=== PATIENT | male | born 1965 | race Caucasian/White ===

== ENCOUNTER 2017-10-07 22:28 | Emergency (ER) | payer MEDICAID ==
[~2017-10-07] VITALS: Ht 177.8 cm; Wt 73.0 kg
[~2017-10-07 22:28] MED LIST: PANT40TA4 PO
[2017-10-07 23:26] LABS: BASOPHILS # (AUTO) 0.1 X10'3 (0-0.2); EOSINOPHILS # (AUTO) 0.4 X10'3 (0-0.9); EOSINOPHILS % (AUTO) 7.5 % (0-6); HEMATOCRIT 41.7 % (42.0-52.0); HEMOGLOBIN 14.4 g/dl (14.0-17.9); LYMPHOCYTES # (AUTO) 2.4 X10'3 (1.1-4.8); LYMPHOCYTES % (AUTO) 40.9 % (21-51); MEAN CORPUSCULAR HEMOGLOBIN 34.7 PG (27.0-31.0); MEAN CORPUSCULAR HGB CONC 34.5 % (33.0-36.5); MEAN CORPUSCULAR VOLUME 100.6 FL (78-98); MEAN PLATELET VOLUME 7.1 FL (7.4-10.4); MONOCYTES # (AUTO) 0.4 X10'3 (0-0.9); MONOCYTES % (AUTO) 6.5 % (2-12); NEUTROPHILS # (AUTO) 2.6 X10'3 (1.8-7.7); NEUTROPHILS % (AUTO) 44.1 % (42-75); PLATELET COUNT 167 X10'3 (140-440); RED BLOOD COUNT 4.15 X10'6 (4.70-6.10); RED CELL DISTRIBUTION WIDTH 14.8 % (11.5-14.5); WHITE BLOOD COUNT 5.9 X10'3 (4.5-11.0)
[2017-10-07 23:35] LABS: INR 1.1 INR; PARTIAL THROMBOPLASTIN TIME 32 SECONDS (22-32); PROTHROMBIN TIME 11.5 SECONDS (9.0-12.0)
[2017-10-07 23:50] LABS: ALANINE AMINOTRANSFERASE 31 U/L (12-78); ALBUMIN 3.5 G/DL (3.4-5.0); ALBUMIN/GLOBULIN RATIO 0.8 (1.1-1.5); ALKALINE PHOSPHATASE 122 IU/L (46-116); ANION GAP 9 (8-16); ASPARTATE AMINO TRANSFERASE 35 U/L (10-37); BILIRUBIN,TOTAL 0.4 MG/DL (0.1-1.0); BLOOD UREA NITROGEN 9 MG/DL (7-18); BUN/CREATININE RATIO 17.3 (5.4-32.0); CALCIUM 8.1 MG/DL (8.5-10.1); CHLORIDE 108 MMOL/L (99-107); CREATININE 0.52 MG/DL (0.60-1.10); GLUCOSE 101 MG/DL (70-104); MAGNESIUM 1.7 MG/DL (1.5-2.4); POTASSIUM 4.3 MMOL/L (3.5-5.1); SODIUM 146 MMOL/L (135-145); TOTAL PROTEIN 7.9 G/DL (6.4-8.2); eGFR > 90 ML/MIN
[2017-10-07 23:51] LABS: ACETAMINOPHEN < 2.0 UG/ML (10-30)
[2017-10-08 04:27] VITALS: BP 112/90
== END 2017-10-08 07:27 | disposition home or self-care (01) ==
LOC: ER 22:28
DX: F10.129 Alcohol abuse with intoxication, unspecified (principal); Y90.9 Presence of alcohol in blood, level not specified; Z59.0 Homelessness
CPT/HCPCS: 36415; 70450; 80053; 80320; 80329; 83735; 85025; 85610; 85730; 99285

== ENCOUNTER 2018-01-10 06:35 | Inpatient (IN) | payer MEDICAID ==
[~2018-01-10] VITALS: Ht 180.3 cm; Wt 63.0 kg
[~2018-01-10 06:35] MED LIST changes: +ESOM40CA30 PO; +LACT10SO7 PO; +MULT-1179 PO; +NO HOME MEDS; -PANT40TA4 PO
[2018-01-10] MEDS ORDERED: normal saline 1000ML IV soln IVB ONE (07:20)
[2018-01-10 07:35] LABS: BASOPHILS # (AUTO) 0.1 X10'3 (0-0.2); BASOPHILS % (AUTO) 1.2 % (0-1); EOSINOPHILS # (AUTO) 0.4 X10'3 (0-0.9); EOSINOPHILS % (AUTO) 7.3 % (0-6); HEMATOCRIT 29.7 % (42.0-52.0); HEMOGLOBIN 9.9 g/dl (14.0-17.9); LYMPHOCYTES # (AUTO) 0.9 X10'3 (1.1-4.8); LYMPHOCYTES % (AUTO) 17.2 % (21-51); MEAN CORPUSCULAR HEMOGLOBIN 33.1 PG (27.0-31.0); MEAN CORPUSCULAR HGB CONC 33.2 % (33.0-36.5); MEAN CORPUSCULAR VOLUME 99.7 FL (78-98); MEAN PLATELET VOLUME 7.4 FL (7.4-10.4); MONOCYTES # (AUTO) 0.3 X10'3 (0-0.9); MONOCYTES % (AUTO) 4.9 % (2-12); NEUTROPHILS # (AUTO) 3.8 X10'3 (1.8-7.7); NEUTROPHILS % (AUTO) 69.4 % (42-75); PLATELET COUNT 255 X10'3 (140-440); RED BLOOD COUNT 2.98 X10'6 (4.70-6.10); RED CELL DISTRIBUTION WIDTH 22.4 % (11.5-14.5); WHITE BLOOD COUNT 5.5 X10'3 (4.5-11.0)
[2018-01-10 07:41] LABS: CLARITY,URINE CLEAR (Clear); COLOR,URINE YELLOW (Yellow); GLUCOSE, URINE NEGATIVE (Neg); KETONES,URINE NEGATIVE (Neg); LEUKOCYTE ESTERASE ,URINE NEGATIVE (Neg); NITRITES, URINE NEGATIVE (Neg); OCCULT BLOOD,URINE NEGATIVE (Neg); PROTEIN,URINE NEGATIVE (Neg); UROBILINOGEN,URINE 0.2 E.U/dL (0.2-1.0)
[2018-01-10 07:45] LABS: UA COLLECTION TYPE CLN CATCH MIDSTREAM
[2018-01-10 07:50] LABS: ALANINE AMINOTRANSFERASE 47 U/L (12-78); ALBUMIN 3.2 G/DL (3.4-5.0); ALBUMIN/GLOBULIN RATIO 0.8 (1.1-1.5); ALKALINE PHOSPHATASE 172 IU/L (46-116); ANION GAP 6 (8-16); ASPARTATE AMINO TRANSFERASE 43 U/L (10-37); BILIRUBIN,TOTAL 0.3 MG/DL (0.1-1.0); BLOOD UREA NITROGEN 17 MG/DL (7-18); BUN/CREATININE RATIO 25.4 (5.4-32.0); CALCIUM 8.7 MG/DL (8.5-10.1); CHLORIDE 105 MMOL/L (99-107); CREATININE 0.67 MG/DL (0.60-1.10); GLUCOSE 97 MG/DL (70-104); MAGNESIUM 1.4 MG/DL (1.5-2.4); POTASSIUM 4.2 MMOL/L (3.5-5.1); SODIUM 138 MMOL/L (135-145); TOTAL CARBON DIOXIDE 26.8 MMOL/L (24-32); TOTAL PROTEIN 7.1 G/DL (6.4-8.2); eGFR > 90 ML/MIN
[2018-01-10 08:23] LABS: % IRON SATURATION 11 % (11-46); IRON 33 UG/DL (53-167); TOTAL IRON BINDING CAPACITY 313 UG/DL (259-388)
[2018-01-10 08:31] LABS: OCCULT BLOOD STOOL POSITIVE (Neg)
[2018-01-10] MEDS ORDERED: phenobarbital inj 260 MG in normal saline 100ml IV soln 99 ML IV STA (09:42)
[2018-01-10] MEDS ORDERED: thiamine 100mg tablet PO ONE (09:45)
[2018-01-10] MEDS ORDERED: magnesium oxide 400mg tablet PO ONE (09:45)
[2018-01-10] MEDS ORDERED: pantoprazole 40MG/NS 100ML BAG 100 ML IV STA (09:56)
[2018-01-10] MEDS ORDERED: pantoprazole 40 MG vial IV ONE (10:00)
[2018-01-10] MEDS ORDERED: HYDROcodone/acetaminophen 5mg/325mg tablet PO PRN (10:05)
[2018-01-10] MEDS ORDERED: morphine 4 MG/ML inj SYRINge IV PRN (10:05)
[2018-01-10] MEDS ORDERED: acetaminophen 325mg tablet PO PRN (10:05)
[2018-01-10] MEDS ORDERED: ondansetron/PF 4mg/2ml inj IV PRN (10:05)
[2018-01-10] MEDS ORDERED: magnesium hydroxide 30ml (MOM) UD suspension PO PRN (10:05)
[2018-01-10] MEDS ORDERED: mag hydrox/Alum hydrox/simeth 30ml oral suspension PO PRN (10:05)
[2018-01-10] MEDS: normal saline 1000ml 1,000 ML IV SCH ×3 (10:43→21:20)
[2018-01-10] MEDS ORDERED: chlordiazePOXIDE 25mg capsule PO ONE (10:50)
[2018-01-10] MEDS: pantoprazole 40MG/NS 100ML BAG 100 ML IV SCH ×3 (11:47→21:22)
[2018-01-10 11:56] VITALS: BP 104/54
[2018-01-10] MEDS ORDERED: [UNRECOGNIZED DRUG - OTHER] (13:44)
[2018-01-10] MEDS ORDERED: nicotine 21mg patch - 24 hr TD ONE (13:55)
[2018-01-10 15:15] LABS: HEMATOCRIT 27.4 % (42.0-52.0); HEMOGLOBIN 9.1 g/dl (14.0-17.9); MEAN CORPUSCULAR HEMOGLOBIN 32.9 PG (27.0-31.0); MEAN CORPUSCULAR HGB CONC 33.1 % (33.0-36.5); MEAN CORPUSCULAR VOLUME 99.3 FL (78-98); MEAN PLATELET VOLUME 7.3 FL (7.4-10.4); PLATELET COUNT 231 X10'3 (140-440); RED BLOOD COUNT 2.76 X10'6 (4.70-6.10); RED CELL DISTRIBUTION WIDTH 22.1 % (11.5-14.5); WHITE BLOOD COUNT 3.6 X10'3 (4.5-11.0)
[2018-01-10 20:00] VITALS: BP 102/54
[2018-01-10 23:52] LABS: HEMATOCRIT 26.5 % (42.0-52.0); HEMOGLOBIN 8.7 g/dl (14.0-17.9); MEAN CORPUSCULAR HEMOGLOBIN 32.9 PG (27.0-31.0); MEAN CORPUSCULAR HGB CONC 32.9 % (33.0-36.5); MEAN PLATELET VOLUME 7.8 FL (7.4-10.4); PLATELET COUNT 207 X10'3 (140-440); RED BLOOD COUNT 2.65 X10'6 (4.70-6.10); RED CELL DISTRIBUTION WIDTH 22.2 % (11.5-14.5); WHITE BLOOD COUNT 3.8 X10'3 (4.5-11.0)
[2018-01-11] VITALS (7 sets, daily range): BP systolic 95–120; BP diastolic 50–69
[2018-01-11] MEDS: pantoprazole 40MG/NS 100ML BAG 100 ML IV SCH ×6 (01:27→22:13)
[2018-01-11 05:17] LABS: BASOPHILS # (AUTO) 0.1 X10'3 (0-0.2); BASOPHILS % (AUTO) 2.3 % (0-1); EOSINOPHILS # (AUTO) 0.3 X10'3 (0-0.9); EOSINOPHILS % (AUTO) 9.2 % (0-6); HEMATOCRIT 25.9 % (42.0-52.0); HEMOGLOBIN 8.6 g/dl (14.0-17.9); LYMPHOCYTES # (AUTO) 0.7 X10'3 (1.1-4.8); LYMPHOCYTES % (AUTO) 21.4 % (21-51); MEAN CORPUSCULAR HEMOGLOBIN 33.2 PG (27.0-31.0); MEAN CORPUSCULAR HGB CONC 33.3 % (33.0-36.5); MEAN CORPUSCULAR VOLUME 99.9 FL (78-98); MEAN PLATELET VOLUME 7.6 FL (7.4-10.4); MONOCYTES # (AUTO) 0.3 X10'3 (0-0.9); MONOCYTES % (AUTO) 7.6 % (2-12); NEUTROPHILS % (AUTO) 59.5 % (42-75); PLATELET COUNT 216 X10'3 (140-440); RED BLOOD COUNT 2.59 X10'6 (4.70-6.10); RED CELL DISTRIBUTION WIDTH 22.5 % (11.5-14.5); WHITE BLOOD COUNT 3.4 X10'3 (4.5-11.0)
[2018-01-11 05:32] LABS: ALANINE AMINOTRANSFERASE 36 U/L (12-78); ALBUMIN 2.5 G/DL (3.4-5.0); ALBUMIN/GLOBULIN RATIO 0.8 (1.1-1.5); ALKALINE PHOSPHATASE 123 IU/L (46-116); ANION GAP 4 (8-16); ASPARTATE AMINO TRANSFERASE 32 U/L (10-37); BILIRUBIN,TOTAL 0.3 MG/DL (0.1-1.0); BLOOD UREA NITROGEN 8 MG/DL (7-18); BUN/CREATININE RATIO 14.3 (5.4-32.0); CHLORIDE 110 MMOL/L (99-107); CREATININE 0.56 MG/DL (0.60-1.10); GLUCOSE 85 MG/DL (70-104); POTASSIUM 3.9 MMOL/L (3.5-5.1); SODIUM 142 MMOL/L (135-145); TOTAL CARBON DIOXIDE 27.6 MMOL/L (24-32); TOTAL PROTEIN 5.8 G/DL (6.4-8.2); eGFR > 90 ML/MIN
[2018-01-11 07:33] LABS: HEMATOCRIT 26.7 % (42.0-52.0); HEMOGLOBIN 8.8 g/dl (14.0-17.9); MEAN CORPUSCULAR HEMOGLOBIN 33.2 PG (27.0-31.0); MEAN CORPUSCULAR HGB CONC 33.1 % (33.0-36.5); MEAN CORPUSCULAR VOLUME 100.1 FL (78-98); MEAN PLATELET VOLUME 7.5 FL (7.4-10.4); PLATELET COUNT 215 X10'3 (140-440); RED BLOOD COUNT 2.66 X10'6 (4.70-6.10); RED CELL DISTRIBUTION WIDTH 21.8 % (11.5-14.5); WHITE BLOOD COUNT 3.5 X10'3 (4.5-11.0)
[2018-01-11 07:49] LABS: PLATELET ESTIMATE NORMAL
[2018-01-11 07:50] LABS: ANISOCYTOSIS 3+; POLYCHROMASIA FEW; TARGET CELLS FEW
[2018-01-11] MEDS ORDERED: LISI40TA4 PO (08:16)
[2018-01-11] MEDS ORDERED: PANT40TA4 PO (08:16)
[2018-01-11] MEDS: normal saline 1000ml 1,000 ML IV SCH ×2 (08:39→19:27)
[2018-01-11] MEDS: nicotine 21mg patch - 24 hr TD SCH (08:40)
[2018-01-11] MEDS: traMADol 50MG tablet PO PRN ×4 (09:21→23:31)
[2018-01-11] MEDS ORDERED: nicotine 21mg patch - 24 hr TD ONE ×2 (14:40)
[2018-01-11 16:08] LABS: HEMATOCRIT 26.4 % (42.0-52.0); HEMOGLOBIN 8.7 g/dl (14.0-17.9); MEAN CORPUSCULAR HEMOGLOBIN 33.2 PG (27.0-31.0); MEAN CORPUSCULAR VOLUME 100.6 FL (78-98); MEAN PLATELET VOLUME 7.4 FL (7.4-10.4); PLATELET COUNT 222 X10'3 (140-440); RED BLOOD COUNT 2.62 X10'6 (4.70-6.10); RED CELL DISTRIBUTION WIDTH 22.4 % (11.5-14.5); WHITE BLOOD COUNT 3.5 X10'3 (4.5-11.0)
[2018-01-11 23:41] LABS: HEMATOCRIT 25.7 % (42.0-52.0); HEMOGLOBIN 8.4 g/dl (14.0-17.9); MEAN CORPUSCULAR HEMOGLOBIN 32.7 PG (27.0-31.0); MEAN CORPUSCULAR HGB CONC 32.7 % (33.0-36.5); MEAN PLATELET VOLUME 7.6 FL (7.4-10.4); PLATELET COUNT 203 X10'3 (140-440); RED BLOOD COUNT 2.57 X10'6 (4.70-6.10); RED CELL DISTRIBUTION WIDTH 22.1 % (11.5-14.5); WHITE BLOOD COUNT 3.9 X10'3 (4.5-11.0)
[2018-01-12] VITALS: BP 110/57
[2018-01-12] MEDS: pantoprazole 40MG/NS 100ML BAG 100 ML IV SCH ×2 (02:58→08:56)
[2018-01-12] MEDS: normal saline 1000ml 1,000 ML IV SCH (05:38)
[2018-01-12 06:08] LABS: BASOPHILS # (AUTO) 0.1 X10'3 (0-0.2); BASOPHILS % (AUTO) 1.8 % (0-1); EOSINOPHILS # (AUTO) 0.4 X10'3 (0-0.9); EOSINOPHILS % (AUTO) 9.5 % (0-6); HEMATOCRIT 24.3 % (42.0-52.0); LYMPHOCYTES # (AUTO) 0.8 X10'3 (1.1-4.8); LYMPHOCYTES % (AUTO) 20.5 % (21-51); MEAN CORPUSCULAR HEMOGLOBIN 32.9 PG (27.0-31.0); MEAN CORPUSCULAR HGB CONC 33.1 % (33.0-36.5); MEAN CORPUSCULAR VOLUME 99.6 FL (78-98); MEAN PLATELET VOLUME 7.9 FL (7.4-10.4); MONOCYTES # (AUTO) 0.3 X10'3 (0-0.9); MONOCYTES % (AUTO) 6.8 % (2-12); NEUTROPHILS # (AUTO) 2.3 X10'3 (1.8-7.7); NEUTROPHILS % (AUTO) 61.4 % (42-75); PLATELET COUNT 191 X10'3 (140-440); RED BLOOD COUNT 2.44 X10'6 (4.70-6.10); RED CELL DISTRIBUTION WIDTH 21.3 % (11.5-14.5); WHITE BLOOD COUNT 3.7 X10'3 (4.5-11.0)
[2018-01-12 06:19] LABS: ALANINE AMINOTRANSFERASE 39 U/L (12-78); ALBUMIN 2.3 G/DL (3.4-5.0); ALBUMIN/GLOBULIN RATIO 0.7 (1.1-1.5); ALKALINE PHOSPHATASE 118 IU/L (46-116); ANION GAP 6 (8-16); ASPARTATE AMINO TRANSFERASE 32 U/L (10-37); BILIRUBIN,TOTAL 0.2 MG/DL (0.1-1.0); BLOOD UREA NITROGEN 5 MG/DL (7-18); BUN/CREATININE RATIO 9.6 (5.4-32.0); CALCIUM 8.4 MG/DL (8.5-10.1); CHLORIDE 108 MMOL/L (99-107); CREATININE 0.52 MG/DL (0.60-1.10); GLUCOSE 82 MG/DL (70-104); POTASSIUM 3.6 MMOL/L (3.5-5.1); SODIUM 142 MMOL/L (135-145); TOTAL CARBON DIOXIDE 27.8 MMOL/L (24-32); TOTAL PROTEIN 5.5 G/DL (6.4-8.2); eGFR > 90 ML/MIN
[2018-01-12 07:04] VITALS: BP 107/61
[2018-01-12 08:26] LABS: HEMATOCRIT 25.2 % (42.0-52.0); HEMOGLOBIN 8.4 g/dl (14.0-17.9); MEAN CORPUSCULAR HGB CONC 33.1 % (33.0-36.5); MEAN CORPUSCULAR VOLUME 99.7 FL (78-98); MEAN PLATELET VOLUME 7.5 FL (7.4-10.4); PLATELET COUNT 200 X10'3 (140-440); RED BLOOD COUNT 2.53 X10'6 (4.70-6.10); RED CELL DISTRIBUTION WIDTH 21.7 % (11.5-14.5); WHITE BLOOD COUNT 4.1 X10'3 (4.5-11.0)
[2018-01-12] MEDS: nicotine 21mg patch - 24 hr TD SCH (08:49)
[2018-01-12] MEDS: traMADol 50MG tablet PO PRN (08:52)
[2018-01-12] MEDS ORDERED: TRAM50TA2 PO (09:12)
[2018-01-12] MEDS ORDERED: PANT40TA4 PO (09:12)
== END 2018-01-12 11:05 | disposition home or self-care (01) | DRG 254 ==
LOC: ER 06:35 → ED HOLD 10:04 → SUR 3N 11:21
PROVIDERS: ADMIT Internal Medicine; ATTEND Internal Medicine
DX: K92.1 Melena (principal); D62 Acute posthemorrhagic anemia; F17.210 Nicotine dependence, cigarettes, uncomplicated; M54.9 Dorsalgia, unspecified; F10.230 Alcohol dependence with withdrawal, uncomplicated; Z59.0 Homelessness; Z79.899 Other long term (current) drug therapy; Y92.89 Other specified places as the place of occurrence of the external cause; T39.315A Adverse effect of propionic acid derivatives, initial encounter
CPT/HCPCS: 36415; 71045; 80053; 81003; 82272; 82607; 82728; 82746; 83540; 83550; 83735; 84466; 85025; 85027; 86885; 86900; 86901; 87070; 93005; 96361; 96365; 99285; C9113; J2270; J2560; J7030

== ENCOUNTER 2018-02-03 20:28 | Emergency (ER) | payer MEDICAID ==
[~2018-02-03] VITALS: Ht 180.3 cm; Wt 65.0 kg
[~2018-02-03 20:28] MED LIST changes: -ESOM40CA30 PO; -LACT10SO7 PO; +LISI40TA4 PO; -MULT-1179 PO; -NO HOME MEDS; +PANT40TA4 PO; +TRAM50TA2 PO
[2018-02-03] MEDS ORDERED: ondansetron/PF 4mg/2ml inj IV ONE (20:45)
[2018-02-03] MEDS ORDERED: albuterol 2.5 MG/3 ML nebule NEB ONE (20:45)
[2018-02-03] MEDS ORDERED: morphine 4 MG/ML inj SYRINge IV ONE (20:45)
[2018-02-03] MEDS ORDERED: [UNRECOGNIZED DRUG - CODE] (20:48)
[2018-02-03] MEDS ORDERED: methylPREDNISolone sod succ 125mg/2ml vial IV ONE (20:50)
[2018-02-03 21:12] LABS: INR 1.1 INR; PARTIAL THROMBOPLASTIN TIME 31 SECONDS (22-32); PROTHROMBIN TIME 11.2 SECONDS (9.0-12.0)
[2018-02-03 21:16] LABS: ALANINE AMINOTRANSFERASE 25 U/L (12-78); ALBUMIN 3.2 G/DL (3.4-5.0); ALBUMIN/GLOBULIN RATIO 0.8 (1.1-1.5); ALKALINE PHOSPHATASE 169 IU/L (46-116); ANION GAP 7 (8-16); ASPARTATE AMINO TRANSFERASE 27 U/L (10-37); BILIRUBIN,TOTAL 0.2 MG/DL (0.1-1.0); BLOOD UREA NITROGEN 15 MG/DL (7-18); BUN/CREATININE RATIO 17.4 (5.4-32.0); CALCIUM 8.7 MG/DL (8.5-10.1); CHLORIDE 106 MMOL/L (99-107); CREATININE 0.86 MG/DL (0.60-1.10); GLUCOSE 93 MG/DL (70-104); SODIUM 140 MMOL/L (135-145); TOTAL PROTEIN 7.3 G/DL (6.4-8.2); eGFR > 90 ML/MIN
[2018-02-03 21:31] LABS: BASOPHILS # (AUTO) 0.1 X10'3 (0-0.2); BASOPHILS % (AUTO) 1.3 % (0-1); EOSINOPHILS # (AUTO) 0.2 X10'3 (0-0.9); EOSINOPHILS % (AUTO) 4.5 % (0-6); HEMATOCRIT 29.4 % (42.0-52.0); HEMOGLOBIN 9.6 g/dl (14.0-17.9); LYMPHOCYTES # (AUTO) 0.9 X10'3 (1.1-4.8); LYMPHOCYTES % (AUTO) 19.3 % (21-51); MEAN CORPUSCULAR HEMOGLOBIN 32.1 PG (27.0-31.0); MEAN CORPUSCULAR HGB CONC 32.8 % (33.0-36.5); MEAN CORPUSCULAR VOLUME 97.9 FL (78-98); MEAN PLATELET VOLUME 7.7 FL (7.4-10.4); MONOCYTES # (AUTO) 0.3 X10'3 (0-0.9); MONOCYTES % (AUTO) 7.3 % (2-12); NEUTROPHILS # (AUTO) 3.1 X10'3 (1.8-7.7); NEUTROPHILS % (AUTO) 67.6 % (42-75); PLATELET COUNT 177 X10'3 (140-440); RED CELL DISTRIBUTION WIDTH 20.4 % (11.5-14.5); WHITE BLOOD COUNT 4.6 X10'3 (4.5-11.0)
[2018-02-03] MEDS ORDERED: ALBU8HFA PO (21:52)
[2018-02-03] MEDS ORDERED: PRED20TA PO (21:52)
[2018-02-03] MEDS ORDERED: IBUP-1985 PO (21:53)
[2018-02-03 21:58] LABS: ANISOCYTOSIS 2+; PLATELET ESTIMATE NORMAL; TARGET CELLS 1+
[2018-02-03 22:07] VITALS: BP 139/75
== END 2018-02-03 22:08 | disposition home or self-care (01) ==
LOC: ER 20:28
DX: J44.1 Chronic obstructive pulmonary disease with (acute) exacerbation (principal); R07.89 Other chest pain; F17.200 Nicotine dependence, unspecified, uncomplicated; F12.90 Cannabis use, unspecified, uncomplicated; Z79.899 Other long term (current) drug therapy; Z56.0 Unemployment, unspecified; Z60.2 Problems related to living alone; Z59.0 Homelessness
CPT/HCPCS: 36415; 71045; 80053; 84484; 85025; 85610; 85730; 93005; 94640; 94760; 96374; 96375; 99285; J2270; J2405; J2930

== ENCOUNTER 2018-08-11 17:56 | Emergency (ER) | payer MEDICAID ==
[~2018-08-11] VITALS: Ht 182.9 cm; Wt 65.0 kg
[~2018-08-11 17:56] MED LIST changes: +IBUP-1985 PO; +[UNRECOGNIZED DRUG - CODE]
--- NOTE | 2018-08-11 18:41 | NUR ---
PA AT BEDSIDE ASSESSED PATIENT, REQUESTING A GAIT TEST AND PO CHALLENGE, PATIENT IS OBSERVABLEY DRUNK, AND IS NOT IN A STATE OF MIND AT THIS TIME FOR A GAIT TEST, WILL RE-ASSESS IN AN HOUR
--- NOTE | 2018-08-11 19:28 | NUR ---
patient unable to arouse for gait/po challenge or test at this time
[2018-08-11 21:32] VITALS: BP 105/56
--- NOTE | 2018-08-11 21:32 | NUR ---
Attempted to gait test patient. Patient is unable to even stand up straight without assistance. Patient smells incredibly strong of beer.
--- NOTE | 2018-08-11 22:09 | NUR ---
PATIENT IN [facility] EYES CLOSED RR EVEN UN LABORED NO OBSERVABLE S/S OF ACUTE STRESS AT THIS TIME
--- NOTE | 2018-08-11 23:04 | NUR ---
PATIENT AMBULATED WITH A STEADY GAIT >100 FEET INFRONT OF LONG HAL LONG VERBALIZED THAT WAS EFFICIENT, PATIENT WAS ABLE TO DRINK 12 FLUID OZ OF JUICE, PA MADE AWARE. PATIENT WAS PROVIDED AND SIGNED PAPER WORK FOR HOMELESS WAIVER, PATIENT WAS GIVEN AND OUT PATIENT RESOURCES SHEET,RABA BUS TICKET, JACKET, LONG SLEEVE SHIRT,PANTS,STOCKING CAP,GLOVES AND A SACK LUNCH AND A RAIN PONCHO.
== END 2018-08-12 00:09 | disposition home or self-care (01) ==
LOC: ER 17:56
DX: F10.129 Alcohol abuse with intoxication, unspecified (principal); F12.90 Cannabis use, unspecified, uncomplicated; Z79.899 Other long term (current) drug therapy; Y90.9 Presence of alcohol in blood, level not specified; Z56.0 Unemployment, unspecified; Z59.0 Homelessness; Z60.2 Problems related to living alone
CPT/HCPCS: 99284

== ENCOUNTER 2019-02-14 20:51 | Emergency (ER) | payer MEDICAID ==
[~2019-02-14] VITALS: Ht 180.3 cm; Wt 70.5 kg
[2019-02-14 20:57] VITALS: BP 123/44
[2019-02-14] MEDS ORDERED: SULF1TAB49 PO (22:37)
== END 2019-02-14 23:41 | disposition home or self-care (01) ==
LOC: ER 20:53
DX: L03.116 Cellulitis of left lower limb (principal); B85.2 Pediculosis, unspecified; F10.129 Alcohol abuse with intoxication, unspecified; F12.90 Cannabis use, unspecified, uncomplicated; Z86.2 Personal history of diseases of the blood and blood-forming organs and certain disorders involving the immune mechanism; Z98.890 Other specified postprocedural states; Z79.899 Other long term (current) drug therapy; Z59.0 Homelessness; Z60.2 Problems related to living alone; Z56.0 Unemployment, unspecified; Y90.9 Presence of alcohol in blood, level not specified
CPT/HCPCS: 99283

== ENCOUNTER 2019-06-01 15:50 | Inpatient (IN) | payer MEDICAID ==
[~2019-06-01] VITALS: Ht 180.3 cm; Wt 75.0 kg
[2019-06-01] MEDS ORDERED: normal saline 1000ML IV soln IVB ONE ×2 (16:20→20:30)
[2019-06-01 17:12] LABS: BASOPHILS # (AUTO) 0.1 X10'3 (0-0.2); BASOPHILS % (AUTO) 1.2 % (0-1); EOSINOPHILS # (AUTO) 0.8 X10'3 (0-0.9); EOSINOPHILS % (AUTO) 10.7 % (0-6); HEMOGLOBIN 13.3 g/dl (14.0-17.9); LYMPHOCYTES # (AUTO) 0.8 X10'3 (1.1-4.8); LYMPHOCYTES % (AUTO) 11.4 % (21-51); MEAN CORPUSCULAR HEMOGLOBIN 36.5 PG (27.0-31.0); MEAN CORPUSCULAR VOLUME 107.4 FL (78-98); MEAN PLATELET VOLUME 7.2 FL (7.4-10.4); MONOCYTES # (AUTO) 0.6 X10'3 (0-0.9); MONOCYTES % (AUTO) 8.4 % (2-12); NEUTROPHILS % (AUTO) 68.3 % (42-75); PLATELET COUNT 210 X10'3 (140-440); RED BLOOD COUNT 3.64 X10'6 (4.70-6.10); RED CELL DISTRIBUTION WIDTH 14.2 % (11.5-14.5); WHITE BLOOD COUNT 7.4 X10'3 (4.5-11.0)
[2019-06-01 17:17] LABS: PARTIAL THROMBOPLASTIN TIME 32 SECONDS (22-32)
[2019-06-01 17:20] LABS: ALANINE AMINOTRANSFERASE 21 U/L (12-78); ALBUMIN 3.5 G/DL (3.4-5.0); ALBUMIN/GLOBULIN RATIO 0.8 (1.1-1.5); ALKALINE PHOSPHATASE 157 IU/L (46-116); ANION GAP 9 (8-16); ASPARTATE AMINO TRANSFERASE 32 U/L (10-37); BILIRUBIN,TOTAL 0.5 MG/DL (0.1-1.0); BLOOD UREA NITROGEN 12 MG/DL (7-18); BUN/CREATININE RATIO 23.1 (5.4-32.0); CALCIUM 8.6 MG/DL (8.5-10.1); CHLORIDE 99 MMOL/L (99-107); CREATININE 0.52 MG/DL (0.60-1.10); GLUCOSE 111 MG/DL (70-104); POTASSIUM 3.1 MMOL/L (3.5-5.1); SODIUM 138 MMOL/L (135-145); TOTAL CARBON DIOXIDE 30.4 MMOL/L (24-32); TOTAL PROTEIN 7.8 G/DL (6.4-8.2); eGFR > 90 ML/MIN
[2019-06-01 17:32] LABS: ETHANOL 0.391 GM/DL (0.0-0.010)
--- NOTE | 2019-06-01 17:59 | NUR ---
PT TO CT
--- NOTE | 2019-06-01 18:53 | NUR ---
PATIENT SLEEPING, STERNAL RUBBED TO WAKE PATIENT UP, PATIENT'S ONLY RESPONSE WAS TO GROWL AND SAY "LEAVE ME ALONE." PATIENT PLACED ON CONTINOUS PULSE OX AND BP MONITORING AT THIS TIME.
[2019-06-01] MEDS ORDERED: thiamine inj. 100 MG, magnesium sulf injection 2 GM, MVI, adult No.4 with vit. K 10 ML ... IV SCH ×4 (19:00)
[2019-06-01] MEDS ORDERED: magnesium 2GM in 50ml NS 50 ML IV ONE (19:04)
[2019-06-01] MEDS ORDERED: thiamine 100mg/ml 2ml inj. IV ONE (19:04)
[2019-06-01] MEDS ORDERED: MVI, adult No.4 with vit. K 10 ML in dextrose 5% water 500ml 500 ML IV ONE ×2 (19:08)
[2019-06-01 20:03] LABS: CLARITY,URINE CLEAR (Clear); COLOR,URINE YELLOW (Yellow); GLUCOSE, URINE NEGATIVE (Neg); KETONES,URINE NEGATIVE (Neg); LEUKOCYTE ESTERASE ,URINE NEGATIVE (Neg); NITRITES, URINE NEGATIVE (Neg); OCCULT BLOOD,URINE NEGATIVE (Neg); PROTEIN,URINE NEGATIVE (Neg); UROBILINOGEN,URINE 0.2 E.U/dL (0.2-1.0)
[2019-06-01 20:07] LABS: UA COLLECTION TYPE CLN CATCH MIDSTREAM
[2019-06-01 20:22] LABS: URINE AMPHETAMINE SCREEN NEGATIVE (Neg); URINE BARBITUATE SCREEN NEGATIVE (Neg); URINE BENZODIAZEPINES SCREEN NEGATIVE (Neg); URINE CANNABINOID SCREEN POSITIVE (Neg); URINE COCAINE SCREEN NEGATIVE (Neg); URINE METHADONE SCREEN NEGATIVE (Neg); URINE OPIATE SCREEN NEGATIVE (Neg); URINE PHENCYCLIDINE SCREEN NEGATIVE (Neg)
--- NOTE | 2019-06-01 21:00 | NUR ---
Notified by Dr Malave that patient desated to the mid 60s and had done this early in the day while sleeping patient placed on simple mask @ 4L at this time in order to maintain O2 > 93%. MD storey
[2019-06-02] MEDS ORDERED: ipratropium/albuterol 3ml nebule NEB ONE (01:35)
--- NOTE | 2019-06-02 02:00 | NUR ---
Patient gate tested on room air, O2 84-83%. placed on simple mask at 2L upon return to room O2 98% at this time. Patient able to ambulate with no assistance
[2019-06-02] MEDS ORDERED: potassium Cl 20 mEq SR tablet PO STA (02:43)
[2019-06-02] MEDS ORDERED: iohexol 300mg/ml 100ml inj. ONE (02:59)
[2019-06-02 03:21] LABS: ABG HCO3 22.6 mmol/L (22.0-26.0); ABG OXYGEN SATURATION 95.4 % (95-98); ABG PCO2 (T) 43.9 mmHg (35.0-45.0); ABG PH (T) 7.332 (7.350-7.450); ABG PO2 (T) 90.8 mmHg (83-108); FCOHb 1.2 % (0.5-1.5); FLOW 2 L/min; FMetHb 0.2 % (0.3-1.12); FO2Hb 94.1 % (94-100); PATIENT TEMPERATURE 37.6; RESPIRATORY RATE (OBSERVED) 20 b/min; TOTAL HEMOGLOBIN 12.2 G/dl (14.0-17.9)
--- NOTE | 2019-06-02 03:26 | NUR ---
PATIENT TO CT
--- NOTE | 2019-06-02 03:41 | NUR ---
Patient back from CT
[2019-06-02] MEDS ORDERED: piperacillin/tazo 3.375gm/50ml 50 ML IV ONE (05:00)
[2019-06-02] MEDS ORDERED: haloperidol 5mg tablet PO PRN (05:25)
[2019-06-02] MEDS ORDERED: potassium Cl 20 mEq SR tablet PO PRN (05:25)
[2019-06-02] MEDS ORDERED: potassium CL 10mEq/100ml bag 100 ML IV PRN ×2 (05:25)
[2019-06-02] MEDS ORDERED: acetaminophen 325mg tablet PO PRN (05:25)
[2019-06-02] MEDS ORDERED: mag hydrox/Alum hydrox/simeth 30ml oral suspension PO PRN (05:25)
[2019-06-02] MEDS ORDERED: Permethrin Cream 60gm TP ONE (05:25)
[2019-06-02] MEDS ORDERED: Permethrin 1% 59ml topical rinse TP ONE ×2 (05:25→10:55)
[2019-06-02] MEDS ORDERED: ondansetron/PF 4mg/2ml inj IV PRN (05:25)
[2019-06-02] MEDS ORDERED: magnesium hydroxide 30ml (MOM) UD suspension PO PRN (05:25)
[2019-06-02] MEDS: normal saline 1000ml 1,000 ML IV SCH ×2 (05:44→15:23)
[2019-06-02] MEDS ORDERED: NO HOME MEDS (06:06)
[2019-06-02 07:30] VITALS: BP 142/86
[2019-06-02] MEDS: K and/or MAG REPLACEMENT MC SCH (08:00)
--- NOTE | 2019-06-02 10:00 | NUR ---
Patient to room 341 at 0730. Patient PIV taped to him but the catheter is not in his body, the tape was removed and a new IV will have to be restarted. Patient also has visible bugs crawling on him and the bed, these look like lice. Patient has not been treated yet. Belongings were also brought up with him. These were bagged up and sent down to be locked up outside.
[2019-06-02] MEDS: azithromycin/NS 500mg/250ml 250 ML IV SCH (10:31)
[2019-06-02] MEDS: piperacillin/tazo 4.5gm/100ml 100 ML IV SCH ×2 (10:31→16:43)
[2019-06-02] MEDS: enoxaparin 40mg/0.4ml syringe SUBCUT SCH (10:32)
[2019-06-02] MEDS: thiamine 100mg tablet PO SCH (10:33)
[2019-06-02] MEDS: multivitamins, therapeutics tablet PO SCH (10:33)
--- NOTE | 2019-06-02 10:52 | NUR ---
Spoke to Dr Ross received orders to get 2nd bottle of lice treatment due to how bad patients lice is. Also, received orders for Ivermetin PO for 7 days
[2019-06-02 11:00] VITALS: BP 159/99
[2019-06-02] MEDS: Ivermectin 3mg tablet PO SCH (11:03)
--- NOTE | 2019-06-02 14:05 | NUR ---
Went into check on patient and PIV was ripped out. Patient stated that he was sleeping and it just came out. A new IV will be restarted.
[2019-06-02] MEDS: acetaminophen 325mg tablet PO PRN (16:43)
[2019-06-02] MEDS: LORazepam 2 mg/ml vial IV PRN (16:43)
[2019-06-02] MEDS: potassium Cl 20 mEq SR tablet PO PRN ×2 (17:46→21:22)
[2019-06-02 18:15] VITALS: BP 115/62
--- NOTE | 2019-06-02 18:42 | NUR ---
Problems reprioritized. Patient report given, questions answered & plan of care reviewed with FABIÁN Agrawal.
--- NOTE | 2019-06-02 18:43 | NUR ---
Patient in room [facility] 341. I have received report from FABIÁN Moore and had the opportunity to ask questions and assume patient care.
[2019-06-02] MEDS: lactobacillus rhamnosus 10,000 MMU CELLS/CAPSULE PO SCH (20:37)
[2019-06-03] MEDS: piperacillin/tazo 4.5gm/100ml 100 ML IV SCH ×3 (00:35→15:57)
[2019-06-03] MEDS: normal saline 1000ml 1,000 ML IV SCH ×4 (00:35→22:33)
[2019-06-03] MEDS: potassium Cl 20 mEq SR tablet PO PRN (01:20)
[2019-06-03 01:45] VITALS: BP 150/106
[2019-06-03 04:58] LABS: HEMOGLOBIN 10.5 g/dl (14.0-17.9); MEAN PLATELET VOLUME 7.5 FL (7.4-10.4); RED CELL DISTRIBUTION WIDTH 14.3 % (11.5-14.5)
[2019-06-03 05:02] LABS: ALBUMIN 2.5 G/DL (3.4-5.0); ANION GAP 4 (8-16); BLOOD UREA NITROGEN 16 MG/DL (7-18); BUN/CREATININE RATIO 30.2 (5.4-32.0); CALCIUM 8.5 MG/DL (8.5-10.1); CHLORIDE 104 MMOL/L (99-107); CREATININE 0.53 MG/DL (0.60-1.10); GLUCOSE 93 MG/DL (70-104); HEMATOCRIT 30.5 % (42.0-52.0); MEAN CORPUSCULAR HEMOGLOBIN 37.5 PG (27.0-31.0); MEAN CORPUSCULAR HGB CONC 34.5 g/dL (33.0-36.5); MEAN CORPUSCULAR VOLUME 108.7 FL (78-98); PLATELET COUNT 168 X10'3 (140-440); POTASSIUM 4.3 MMOL/L (3.5-5.1); RED BLOOD COUNT 2.81 X10'6 (4.70-6.10); SODIUM 139 MMOL/L (135-145); TOTAL CARBON DIOXIDE 31.3 MMOL/L (24-32); WHITE BLOOD COUNT 6.4 X10'3 (4.5-11.0); eGFR > 90 ML/MIN
--- NOTE | 2019-06-03 05:30 | NUR ---
Paged Dr. Aparicio regarding patient refusing tele lead placement. Per tele: SR, 80-110 with occasional PVC.
[2019-06-03 06:07] LABS: NUCLEATED RED BLOOD CELLS 1 /100WBC (0-0); PLATELET ESTIMATE NORMAL; POLYCHROMASIA 1+; TOTAL CELLS COUNTED 100
[2019-06-03 06:30] VITALS: BP 104/66
--- NOTE | 2019-06-03 06:30 | NUR ---
Received called from Dr. Aparicio. Informed Dr. Aparicio that pt is refusing tele pad and per TELE pt is running SR, 80-110 occasional PVC. Will DC tele and follow-up clinically.
--- NOTE | 2019-06-03 06:35 | NUR ---
Patient in room [facility] 352. I have received report from FABIÁN Agrawal and had the opportunity to ask questions and assume patient care.
--- NOTE | 2019-06-03 06:35 | NUR ---
Problems reprioritized. Patient report given, questions answered & plan of care reviewed with FABIÁN Wakefield.
[2019-06-03] MEDS: K and/or MAG REPLACEMENT MC SCH (07:09)
[2019-06-03] MEDS: azithromycin/NS 500mg/250ml 250 ML IV SCH (08:20)
[2019-06-03] MEDS: lactobacillus rhamnosus 10,000 MMU CELLS/CAPSULE PO SCH ×2 (08:24→20:09)
[2019-06-03] MEDS: multivitamins, therapeutics tablet PO SCH (08:24)
[2019-06-03] MEDS: thiamine 100mg tablet PO SCH (08:24)
[2019-06-03] MEDS: enoxaparin 40mg/0.4ml syringe SUBCUT SCH (08:24)
[2019-06-03 11:00] VITALS: BP 130/66
--- NOTE | 2019-06-03 18:10 | NUR ---
Problems reprioritized. Patient report given, questions answered & plan of care reviewed with FABIÁN Agrawal.
[2019-06-03 18:15] VITALS: BP 134/78
--- NOTE | 2019-06-03 18:21 | NUR ---
Patient in room [facility] 352. I have received report from FABIÁN Wakefield and had the opportunity to ask questions and assume patient care.
[2019-06-03] MEDS: LORazepam 2 mg/ml vial IV PRN (20:10)
[2019-06-03] MEDS: acetaminophen 325mg tablet PO PRN (20:10)
[2019-06-04] MEDS: piperacillin/tazo 4.5gm/100ml 100 ML IV SCH ×3 (00:11→16:18)
[2019-06-04 00:22] VITALS: BP 128/75
[2019-06-04] MEDS ORDERED: LORazepam 2 mg/ml vial IV PRN (05:25)
--- NOTE | 2019-06-04 06:20 | NUR ---
Patient in room [facility] 352. I have received report from FABIÁN Agrawal and had the opportunity to ask questions and assume patient care.
--- NOTE | 2019-06-04 06:20 | NUR ---
Problems reprioritized. Patient report given, questions answered & plan of care reviewed with FABIÁN Wakefield.
[2019-06-04 06:25] LABS: BASOPHILS % (AUTO) 0.7 % (0-1); EOSINOPHILS % (AUTO) 16.3 % (0-6); HEMATOCRIT 27.7 % (42.0-52.0); HEMOGLOBIN 9.5 g/dl (14.0-17.9); LYMPHOCYTES # (AUTO) 0.8 X10'3 (1.1-4.8); LYMPHOCYTES % (AUTO) 14.2 % (21-51); MEAN CORPUSCULAR HEMOGLOBIN 36.8 PG (27.0-31.0); MEAN CORPUSCULAR HGB CONC 34.2 g/dL (33.0-36.5); MEAN CORPUSCULAR VOLUME 107.8 FL (78-98); MEAN PLATELET VOLUME 7.6 FL (7.4-10.4); MONOCYTES # (AUTO) 0.5 X10'3 (0-0.9); MONOCYTES % (AUTO) 7.6 % (2-12); NEUTROPHILS # (AUTO) 3.6 X10'3 (1.8-7.7); NEUTROPHILS % (AUTO) 61.2 % (42-75); PLATELET COUNT 165 X10'3 (140-440); RED BLOOD COUNT 2.57 X10'6 (4.70-6.10); RED CELL DISTRIBUTION WIDTH 13.9 % (11.5-14.5); WHITE BLOOD COUNT 5.9 X10'3 (4.5-11.0)
[2019-06-04 06:28] LABS: ALBUMIN 2.3 G/DL (3.4-5.0); ANION GAP 9 (8-16); BLOOD UREA NITROGEN 17 MG/DL (7-18); BUN/CREATININE RATIO 32.7 (5.4-32.0); CHLORIDE 105 MMOL/L (99-107); CREATININE 0.52 MG/DL (0.60-1.10); GLUCOSE 93 MG/DL (70-104); POTASSIUM 3.7 MMOL/L (3.5-5.1); SODIUM 140 MMOL/L (135-145); TOTAL CARBON DIOXIDE 26.5 MMOL/L (24-32); eGFR > 90 ML/MIN
[2019-06-04 06:30] VITALS: BP 120/79
[2019-06-04] MEDS: K and/or MAG REPLACEMENT MC SCH (07:00)
[2019-06-04] MEDS: enoxaparin 40mg/0.4ml syringe SUBCUT SCH (07:01)
[2019-06-04] MEDS: azithromycin/NS 500mg/250ml 250 ML IV SCH (09:31)
[2019-06-04] MEDS: thiamine 100mg tablet PO SCH (09:31)
[2019-06-04] MEDS: multivitamins, therapeutics tablet PO SCH (09:32)
[2019-06-04] MEDS: lactobacillus rhamnosus 10,000 MMU CELLS/CAPSULE PO SCH ×2 (09:32→21:24)
[2019-06-04] MEDS: pantoprazole 40mg Tablet.DR PO SCH ×2 (09:32→21:24)
[2019-06-04 11:00] VITALS: BP 133/88
[2019-06-04 11:23] LABS: OCCULT BLOOD STOOL POSITIVE (Neg)
[2019-06-04] MEDS: acetaminophen 325mg tablet PO PRN ×2 (15:38→21:46)
[2019-06-04] MEDS: normal saline 1000ml 1,000 ML IV SCH (15:39)
--- NOTE | 2019-06-04 18:00 | NUR ---
Problems reprioritized. Patient report given, questions answered & plan of care reviewed with FABIÁN Agrawal.
--- NOTE | 2019-06-04 18:10 | NUR ---
Patient in room [facility] 352. I have received report from FABIÁN Wakefield and had the opportunity to ask questions and assume patient care.
[2019-06-04 18:15] VITALS: BP 126/68
[2019-06-05] MEDS: LORazepam 1 MG tablet PO PRN ×2 (00:08→20:13)
[2019-06-05] MEDS: piperacillin/tazo 4.5gm/100ml 100 ML IV SCH ×4 (00:09→23:08)
[2019-06-05] MEDS: normal saline 1000ml 1,000 ML IV SCH ×3 (00:11→23:07)
[2019-06-05 00:23] VITALS: BP 122/70
[2019-06-05 06:09] LABS: ALBUMIN 2.4 G/DL (3.4-5.0); ANION GAP 7 (8-16); BLOOD UREA NITROGEN 11 MG/DL (7-18); BUN/CREATININE RATIO 20.4 (5.4-32.0); CALCIUM 8.2 MG/DL (8.5-10.1); CHLORIDE 106 MMOL/L (99-107); CREATININE 0.54 MG/DL (0.60-1.10); GLUCOSE 94 MG/DL (70-104); POTASSIUM 3.8 MMOL/L (3.5-5.1); SODIUM 140 MMOL/L (135-145); TOTAL CARBON DIOXIDE 26.9 MMOL/L (24-32); eGFR > 90 ML/MIN
[2019-06-05 06:48] LABS: HEMOGLOBIN 8.7 g/dl (14.0-17.9); WHITE BLOOD COUNT 4.9 X10'3 (4.5-11.0)
--- NOTE | 2019-06-05 06:48 | NUR ---
Problems reprioritized. Patient report given, questions answered & plan of care reviewed with FABIÁN Smith.
[2019-06-05 06:50] LABS: HEMATOCRIT 25.3 % (42.0-52.0); MEAN CORPUSCULAR HEMOGLOBIN 37.4 PG (27.0-31.0); MEAN CORPUSCULAR HGB CONC 34.4 g/dL (33.0-36.5); MEAN CORPUSCULAR VOLUME 108.8 FL (78-98); MEAN PLATELET VOLUME 7.7 FL (7.4-10.4); PLATELET COUNT 162 X10'3 (140-440); RED BLOOD COUNT 2.33 X10'6 (4.70-6.10); RED CELL DISTRIBUTION WIDTH 14.1 % (11.5-14.5)
--- NOTE | 2019-06-05 06:55 | NUR ---
Patient in room [facility] 352. I have received report from Tanja LOCKWOOD and had the opportunity to ask questions and assume patient care.
[2019-06-05 07:34] LABS: PLATELET ESTIMATE NORMAL; TOTAL CELLS COUNTED 100
[2019-06-05 07:35] LABS: HYPOCHROMASIA 1+; POLYCHROMASIA 1+
[2019-06-05 08:00] VITALS: BP 131/76
[2019-06-05] MEDS ORDERED: azithromycin 250mg tablet PO SCH (08:00)
[2019-06-05] MEDS: K and/or MAG REPLACEMENT MC SCH (08:00)
[2019-06-05] MEDS: thiamine 100mg tablet PO SCH (08:35)
[2019-06-05] MEDS: multivitamins, therapeutics tablet PO SCH (08:35)
[2019-06-05] MEDS: lactobacillus rhamnosus 10,000 MMU CELLS/CAPSULE PO SCH ×2 (08:35→20:13)
[2019-06-05] MEDS: pantoprazole 40mg Tablet.DR PO SCH ×2 (08:35→20:13)
[2019-06-05 11:00] VITALS: BP 137/88
[2019-06-05] MEDS: acetaminophen 325mg tablet PO PRN (15:21)
[2019-06-05 18:00] VITALS: BP 141/76
--- NOTE | 2019-06-05 18:00 | NUR ---
Patient in room [facility] 352. I have received report from Sarah LOCKWOOD and had the opportunity to ask questions and assume patient care. Addendum: 06/05/19 at 1933 by Amber Curtis RN Amended: Links added.
--- NOTE | 2019-06-05 18:42 | NUR ---
Problems reprioritized. Patient report given, questions answered & plan of care reviewed with Amber LOCKWOOD.
[2019-06-06] VITALS: BP 122/77
[2019-06-06] MEDS ORDERED: LORazepam 1 MG tablet PO PRN (05:25)
--- NOTE | 2019-06-06 06:00 | NUR ---
Problems reprioritized. Patient report given, questions answered & plan of care reviewed with Flavio LOCKWOOD. Addendum: 06/06/19 at 0634 by Amber Curtis RN Amended: Links added. Addendum: 06/06/19 at 0650 by Sarah Means RN Patient in room [facility]. I have received report from Amber LOCKWOOD and had the opportunity to ask questions and assume patient care.
[2019-06-06] MEDS: pantoprazole 40mg Tablet.DR PO SCH ×2 (08:00→19:44)
[2019-06-06] MEDS: K and/or MAG REPLACEMENT MC SCH (08:00)
[2019-06-06 08:22] LABS: BASOPHILS # (AUTO) 0.1 X10'3 (0-0.2); LYMPHOCYTES # (AUTO) 0.7 X10'3 (1.1-4.8); MONOCYTES # (AUTO) 0.4 X10'3 (0-0.9); RED BLOOD COUNT 2.46 X10'6 (4.70-6.10); WHITE BLOOD COUNT 4.8 X10'3 (4.5-11.0)
[2019-06-06 08:28] LABS: EOSINOPHILS # (AUTO) 0.6 X10'3 (0-0.9); HEMATOCRIT 26.8 % (42.0-52.0); HEMOGLOBIN 9.3 g/dl (14.0-17.9); LYMPHOCYTES % (AUTO) 14.7 % (21-51); MEAN CORPUSCULAR HEMOGLOBIN 37.7 PG (27.0-31.0); MEAN CORPUSCULAR HGB CONC 34.6 g/dL (33.0-36.5); MEAN CORPUSCULAR VOLUME 108.9 FL (78-98); MONOCYTES % (AUTO) 8.4 % (2-12); NEUTROPHILS % (AUTO) 60.9 % (42-75); PLATELET COUNT 169 X10'3 (140-440); RED CELL DISTRIBUTION WIDTH 14.1 % (11.5-14.5)
[2019-06-06 08:30] VITALS: BP 117/71
[2019-06-06 08:45] LABS: ALBUMIN 2.5 G/DL (3.4-5.0); ANION GAP 8 (8-16); BLOOD UREA NITROGEN 9 MG/DL (7-18); BUN/CREATININE RATIO 16.4 (5.4-32.0); CHLORIDE 105 MMOL/L (99-107); CREATININE 0.55 MG/DL (0.60-1.10); GLUCOSE 96 MG/DL (70-104); POTASSIUM 3.7 MMOL/L (3.5-5.1); SODIUM 140 MMOL/L (135-145); eGFR > 90 ML/MIN
[2019-06-06 08:53] LABS: % IRON SATURATION 14 % (11-46); IRON 42 UG/DL (53-167); TOTAL IRON BINDING CAPACITY 305 UG/DL (259-388)
[2019-06-06] MEDS: piperacillin/tazo 4.5gm/100ml 100 ML IV SCH ×2 (09:08→17:02)
[2019-06-06] MEDS: normal saline 1000ml 1,000 ML IV SCH (09:12)
[2019-06-06] MEDS: lactobacillus rhamnosus 10,000 MMU CELLS/CAPSULE PO SCH ×2 (09:14→19:44)
[2019-06-06] MEDS: multivitamins, therapeutics tablet PO SCH (09:14)
[2019-06-06] MEDS: thiamine 100mg tablet PO SCH (09:15)
[2019-06-06 18:00] VITALS: BP 124/81
--- NOTE | 2019-06-06 18:35 | NUR ---
Received report from FABIÁN Smith. Assumed patient care. Call light and items of frequent use within reach. Will continue to monitor.
--- NOTE | 2019-06-06 18:36 | NUR ---
Problems reprioritized. Patient report given, questions answered & plan of care reviewed with Kaitlyn LOCKWOOD.
[2019-06-06] MEDS: acetaminophen 325mg tablet PO PRN (19:45)
[2019-06-07 00:03] VITALS: BP 132/82
[2019-06-07] MEDS: piperacillin/tazo 4.5gm/100ml 100 ML IV SCH ×3 (00:12→17:18)
[2019-06-07 04:44] LABS: ALBUMIN 2.5 G/DL (3.4-5.0); ANION GAP 5 (8-16); BLOOD UREA NITROGEN 11 MG/DL (7-18); BUN/CREATININE RATIO 19.3 (5.4-32.0); CALCIUM 8.5 MG/DL (8.5-10.1); CHLORIDE 104 MMOL/L (99-107); CREATININE 0.57 MG/DL (0.60-1.10); GLUCOSE 91 MG/DL (70-104); POTASSIUM 3.7 MMOL/L (3.5-5.1); SODIUM 138 MMOL/L (135-145); TOTAL CARBON DIOXIDE 29.1 MMOL/L (24-32); eGFR > 90 ML/MIN
[2019-06-07 05:00] LABS: BASOPHILS # (AUTO) 0.1 X10'3 (0-0.2); BASOPHILS % (AUTO) 3.1 % (0-1); EOSINOPHILS # (AUTO) 0.7 X10'3 (0-0.9); EOSINOPHILS % (AUTO) 15.5 % (0-6); HEMATOCRIT 25.3 % (42.0-52.0); HEMOGLOBIN 8.8 g/dl (14.0-17.9); LYMPHOCYTES # (AUTO) 0.8 X10'3 (1.1-4.8); MEAN CORPUSCULAR HEMOGLOBIN 37.3 PG (27.0-31.0); MEAN CORPUSCULAR HGB CONC 34.7 g/dL (33.0-36.5); MEAN CORPUSCULAR VOLUME 107.5 FL (78-98); MEAN PLATELET VOLUME 8.1 FL (7.4-10.4); MONOCYTES # (AUTO) 0.5 X10'3 (0-0.9); MONOCYTES % (AUTO) 11.5 % (2-12); NEUTROPHILS # (AUTO) 2.5 X10'3 (1.8-7.7); NEUTROPHILS % (AUTO) 52.9 % (42-75); PLATELET COUNT 159 X10'3 (140-440); RED BLOOD COUNT 2.35 X10'6 (4.70-6.10); RED CELL DISTRIBUTION WIDTH 14.6 % (11.5-14.5); WHITE BLOOD COUNT 4.7 X10'3 (4.5-11.0)
--- NOTE | 2019-06-07 06:06 | NUR ---
Problems reprioritized. Patient report given, questions answered & plan of care reviewed with FABIÁN Pacheco.
--- NOTE | 2019-06-07 07:12 | NUR ---
Patient in room [facility] 352. I have received report from FABIÁN Sahni and had the opportunity to ask questions and assume patient care.
[2019-06-07 07:26] VITALS: BP 129/78
[2019-06-07] MEDS: K and/or MAG REPLACEMENT MC SCH (08:00)
[2019-06-07] MEDS: pantoprazole 40mg Tablet.DR PO SCH ×2 (09:51→20:06)
[2019-06-07] MEDS: thiamine 100mg tablet PO SCH (09:51)
[2019-06-07] MEDS: multivitamins, therapeutics tablet PO SCH (09:51)
[2019-06-07] MEDS: lactobacillus rhamnosus 10,000 MMU CELLS/CAPSULE PO SCH ×2 (09:51→20:06)
[2019-06-07 11:00] VITALS: BP_SYST 102; BP_SYST 120; BP_DIAS 56; BP_DIAS 60
--- NOTE | 2019-06-07 14:34 | NUR ---
Initial: Pt homeless admit w/ etoh 0.391, bed bugs, and likely aspiration PNA in addition to macrocytic anemia per MD note. B12 pending; would likely benefit from MMA given etoh hx for more accurate reflection per MD approval. Advanced to mechanical soft/chopped diet per FACULTY SUPPORT COORDINATOR recs PO 75-100% avg meals meeting needs. LBM 06/06. RD d/w R regarding folic acid per MD approval since on etoh w/d protocol only receiving MVI/thiamin. Will continue to monitor. Rec: 1. continue mechanical soft/chopped diet per FACULTY SUPPORT COORDINATOR 2. Consider MMA per MD approval given etoh/cirrhosis hx 3. bowel care as needed 4. wt per rx Addendum: 06/07/19 at [address] Amended: Links added.
--- NOTE | 2019-06-07 18:34 | NUR ---
Patient in room [facility] 352. I have received report from FABIÁN Pacheco and had the opportunity to ask questions and assume patient care.
--- NOTE | 2019-06-07 18:47 | NUR ---
Problems reprioritized. Patient report given, questions answered & plan of care reviewed with FABIÁN Ashton.
[2019-06-07 20:00] VITALS: BP 111/77
[2019-06-07] MEDS ORDERED: PEG 3350/Na sulf,bicarb,Cl/KCl oral sol 4 liter bottle PO ONE (21:15)
--- NOTE | 2019-06-07 23:20 | NUR ---
Patient in room [facility] 352. I have received report from Daisha Crawford RN and had the opportunity to ask questions and assume patient care.
--- NOTE | 2019-06-07 23:26 | NUR ---
Problems reprioritized. Patient report given, questions answered & plan of care reviewed with FABIÁN Agrawal.
[2019-06-08] VITALS (10 sets, daily range): BP systolic 99–138; BP diastolic 52–87
[2019-06-08] MEDS: acetaminophen 325mg tablet PO PRN (00:37)
[2019-06-08] MEDS: LORazepam 2 mg/ml vial IV PRN ×2 (01:17→23:56)
[2019-06-08] MEDS: piperacillin/tazo 4.5gm/100ml 100 ML IV SCH ×4 (01:22→23:56)
--- NOTE | 2019-06-08 06:15 | NUR ---
Patient in room [facility] 352. I have received report from FABIÁN Agrawal and had the opportunity to ask questions and assume patient care.
[2019-06-08 06:23] LABS: EOSINOPHILS # (AUTO) 0.6 X10'3 (0-0.9); LYMPHOCYTES # (AUTO) 0.8 X10'3 (1.1-4.8); MEAN CORPUSCULAR HGB CONC 34.5 g/dL (33.0-36.5); MEAN CORPUSCULAR VOLUME 107.8 FL (78-98); MONOCYTES # (AUTO) 0.6 X10'3 (0-0.9); NEUTROPHILS # (AUTO) 2.9 X10'3 (1.8-7.7)
[2019-06-08 06:24] LABS: BASOPHILS # (AUTO) 0.1 X10'3 (0-0.2); BASOPHILS % (AUTO) 2.6 % (0-1); EOSINOPHILS % (AUTO) 12.6 % (0-6); HEMATOCRIT 26.3 % (42.0-52.0); HEMOGLOBIN 9.1 g/dl (14.0-17.9); LYMPHOCYTES % (AUTO) 15.9 % (21-51); MEAN CORPUSCULAR HEMOGLOBIN 37.1 PG (27.0-31.0); MEAN PLATELET VOLUME 7.8 FL (7.4-10.4); MONOCYTES % (AUTO) 11.7 % (2-12); NEUTROPHILS % (AUTO) 57.2 % (42-75); PLATELET COUNT 182 X10'3 (140-440); RED BLOOD COUNT 2.44 X10'6 (4.70-6.10); RED CELL DISTRIBUTION WIDTH 14.1 % (11.5-14.5)
--- NOTE | 2019-06-08 06:28 | NUR ---
Problems reprioritized. Patient report given, questions answered & plan of care reviewed with Tara Moscoso RN.
[2019-06-08 07:09] LABS: ALANINE AMINOTRANSFERASE 35 U/L (12-78); ALBUMIN 2.6 G/DL (3.4-5.0); ALBUMIN/GLOBULIN RATIO 0.6 (1.1-1.5); ALKALINE PHOSPHATASE 120 IU/L (46-116); ANION GAP 6 (8-16); ASPARTATE AMINO TRANSFERASE 48 U/L (10-37); BILIRUBIN,TOTAL 0.3 MG/DL (0.1-1.0); BLOOD UREA NITROGEN 14 MG/DL (7-18); BUN/CREATININE RATIO 24.6 (5.4-32.0); CALCIUM 8.7 MG/DL (8.5-10.1); CHLORIDE 104 MMOL/L (99-107); CREATININE 0.57 MG/DL (0.60-1.10); GLUCOSE 89 MG/DL (70-104); MAGNESIUM 1.7 MG/DL (1.5-2.4); PHOSPHORUS 4.4 MG/DL (2.3-4.5); SODIUM 139 MMOL/L (135-145); TOTAL CARBON DIOXIDE 28.7 MMOL/L (24-32); TOTAL PROTEIN 6.7 G/DL (6.4-8.2); eGFR > 90 ML/MIN
--- NOTE | 2019-06-08 07:22 | NUR ---
Patient in room [facility] 352. I have received report from FABIÁN Agrawal and had the opportunity to ask questions and assume patient care.
[2019-06-08] MEDS: K and/or MAG REPLACEMENT MC SCH (08:00)
[2019-06-08] MEDS ORDERED: MIDAZolam 5mg/5ml vial ONE (13:42)
[2019-06-08] MEDS ORDERED: fentaNYL/PF 50MCG/1 ML 2ML syringe ONE (13:42)
[2019-06-08] MEDS: multivitamins, therapeutics tablet PO SCH (17:26)
[2019-06-08] MEDS: folic acid 1mg tablet PO SCH (17:27)
[2019-06-08] MEDS: thiamine 100mg tablet PO SCH (17:27)
[2019-06-08] MEDS: lactobacillus rhamnosus 10,000 MMU CELLS/CAPSULE PO SCH ×2 (17:27→21:20)
[2019-06-08] MEDS: pantoprazole 40mg Tablet.DR PO SCH ×2 (17:27→21:20)
--- NOTE | 2019-06-08 18:25 | NUR ---
Problems reprioritized. Patient report given, questions answered & plan of care reviewed with FABIÁN Whaley.
--- NOTE | 2019-06-08 18:54 | NUR ---
Patient in room [facility] 352. I have received report from Tara LOCKWOOD and had the opportunity to ask questions and assume patient care.
[2019-06-09] VITALS: BP 100/49
[2019-06-09 05:37] LABS: BASOPHILS # (AUTO) 0.1 X10'3 (0-0.2); BASOPHILS % (AUTO) 1.3 % (0-1); EOSINOPHILS # (AUTO) 0.5 X10'3 (0-0.9); EOSINOPHILS % (AUTO) 10.1 % (0-6); HEMATOCRIT 25.5 % (42.0-52.0); HEMOGLOBIN 8.7 g/dl (14.0-17.9); LYMPHOCYTES # (AUTO) 0.8 X10'3 (1.1-4.8); LYMPHOCYTES % (AUTO) 14.7 % (21-51); MEAN CORPUSCULAR HEMOGLOBIN 37.3 PG (27.0-31.0); MEAN CORPUSCULAR HGB CONC 34.1 g/dL (33.0-36.5); MEAN CORPUSCULAR VOLUME 109.4 FL (78-98); MEAN PLATELET VOLUME 8.2 FL (7.4-10.4); MONOCYTES # (AUTO) 0.5 X10'3 (0-0.9); MONOCYTES % (AUTO) 9.6 % (2-12); NEUTROPHILS # (AUTO) 3.3 X10'3 (1.8-7.7); NEUTROPHILS % (AUTO) 64.3 % (42-75); PLATELET COUNT 185 X10'3 (140-440); RED BLOOD COUNT 2.33 X10'6 (4.70-6.10); RED CELL DISTRIBUTION WIDTH 14.3 % (11.5-14.5); WHITE BLOOD COUNT 5.2 X10'3 (4.5-11.0)
[2019-06-09 05:47] LABS: ALANINE AMINOTRANSFERASE 30 U/L (12-78); ALBUMIN 2.7 G/DL (3.4-5.0); ALBUMIN/GLOBULIN RATIO 0.7 (1.1-1.5); ALKALINE PHOSPHATASE 109 IU/L (46-116); ANION GAP 6 (8-16); ASPARTATE AMINO TRANSFERASE 35 U/L (10-37); BILIRUBIN,TOTAL 0.3 MG/DL (0.1-1.0); BLOOD UREA NITROGEN 12 MG/DL (7-18); BUN/CREATININE RATIO 16.7 (5.4-32.0); CALCIUM 8.6 MG/DL (8.5-10.1); CHLORIDE 105 MMOL/L (99-107); CREATININE 0.72 MG/DL (0.60-1.10); GLUCOSE 88 MG/DL (70-104); MAGNESIUM 1.7 MG/DL (1.5-2.4); PHOSPHORUS 5.2 MG/DL (2.3-4.5); POTASSIUM 3.9 MMOL/L (3.5-5.1); SODIUM 140 MMOL/L (135-145); TOTAL CARBON DIOXIDE 28.6 MMOL/L (24-32); TOTAL PROTEIN 6.7 G/DL (6.4-8.2); eGFR > 90 ML/MIN
--- NOTE | 2019-06-09 06:23 | NUR ---
Patient in room [facility] 352. I have received report from FABIÁN Whaley and had the opportunity to ask questions and assume patient care.
--- NOTE | 2019-06-09 06:42 | NUR ---
Problems reprioritized. Patient report given, questions answered & plan of care reviewed with Jeanine LOCKWOOD.
[2019-06-09 07:30] VITALS: BP 137/88
[2019-06-09 08:00] VITALS: BP 115/71
[2019-06-09] MEDS: K and/or MAG REPLACEMENT MC SCH (08:00)
[2019-06-09] MEDS: pantoprazole 40mg Tablet.DR PO SCH (08:59)
[2019-06-09] MEDS: piperacillin/tazo 4.5gm/100ml 100 ML IV SCH (09:00)
[2019-06-09] MEDS: thiamine 100mg tablet PO SCH (09:00)
[2019-06-09] MEDS: lactobacillus rhamnosus 10,000 MMU CELLS/CAPSULE PO SCH (09:00)
[2019-06-09] MEDS: folic acid 1mg tablet PO SCH (09:00)
[2019-06-09] MEDS: multivitamins, therapeutics tablet PO SCH (09:00)
[2019-06-09] MEDS: acetaminophen 325mg tablet PO PRN (09:18)
--- NOTE | 2019-06-09 09:22 | NUR ---
Patients left eye deviates laterally. Addendum: 06/09/19 at 0930 by Robert MARIA Amended: Links added.
[2019-06-09] MEDS: Ivermectin 3mg tablet PO SCH (10:44)
[2019-06-09 11:43] VITALS: BP 120/70
--- NOTE | 2019-06-09 12:00 | NUR ---
Received report from Fuentes, Student RN and FABIÁN Solorzano
--- NOTE | 2019-06-09 12:04 | NUR ---
Patient has a lump/knot in the right grown area (near right testicle). Patient states he doesn't remember when he first noticed it.
[2019-06-09] MEDS ORDERED: thiamine tablet PO (13:53)
[2019-06-09] MEDS ORDERED: MULT-1179 PO (13:53)
[2019-06-09] MEDS ORDERED: folic acid tablet PO (13:53)
[2019-06-09] MEDS ORDERED: LACT1CAP26 PO (13:53)
[2019-06-09] MEDS ORDERED: PANT40TA4 PO (13:53)
[2019-06-09] MEDS ORDERED: DOCU-148 PO (13:57)
[2019-06-09] MEDS ORDERED: PSYL0.524 PO (13:57)
--- NOTE | 2019-06-09 16:22 | NUR ---
Pt discharged with all belongings. Pt states he intends to stay at the [employer] [place] tonight, bus pass provided. Discharge instructions and medications reviewed. New prescriptions e-scripted to [facility]. Pt provided with sack lunch and clean clothes prior to discharge. Pt denied paperwork for [facility] [place], states 'I already know about them'. IV DC'd, cannula intact. Belongings locked up outside returned to pt upon discharge. Pt escorted to front lobby via wheelchair by student RN.
== END 2019-06-09 16:08 | disposition home or self-care (01) | DRG 137 ==
LOC: ER 15:51 → ED HOLD 06-02 05:23 → SUR 3N 06-02 06:40
PROVIDERS: ADMIT Hospitalist; ATTEND Family Medicine
PROC: B32T1ZZ Computerized Tomography (CT Scan) of Left Pulmonary Artery using Low Osmolar Contrast (ICD-10-PCS; 2019-06-02)
PROC: B3201ZZ Computerized Tomography (CT Scan) of Thoracic Aorta using Low Osmolar Contrast (ICD-10-PCS; 2019-06-02)
PROC: B32S1ZZ Computerized Tomography (CT Scan) of Right Pulmonary Artery using Low Osmolar Contrast (ICD-10-PCS; 2019-06-02)
PROC: 0DBN8ZX Excision of Sigmoid Colon, Via Natural or Artificial Opening Endoscopic, Diagnostic (ICD-10-PCS; principal; 2019-06-08)
DX: J69.0 Pneumonitis due to inhalation of food and vomit (principal); J96.01 Acute respiratory failure with hypoxia; B85.2 Pediculosis, unspecified; B88.8 Other specified infestations; D53.9 Nutritional anemia, unspecified; E87.6 Hypokalemia; F17.200 Nicotine dependence, unspecified, uncomplicated; F12.90 Cannabis use, unspecified, uncomplicated; W18.39XA Other fall on same level, initial encounter; F32.9 Major depressive disorder, single episode, unspecified; F10.129 Alcohol abuse with intoxication, unspecified; K92.1 Melena; K63.5 Polyp of colon; R68.0 Hypothermia, not associated with low environmental temperature; K64.8 Other hemorrhoids; K70.9 Alcoholic liver disease, unspecified; K70.30 Alcoholic cirrhosis of liver without ascites; Z59.0 Homelessness; Z87.11 Personal history of peptic ulcer disease; Y93.89 Activity, other specified; Y92.488 Other paved roadways as the place of occurrence of the external cause; Y99.8 Other external cause status
CPT/HCPCS: 36415; 36600; 45385; 70450; 71045; 71275; 80048; 80053; 80305; 80320; 81003; 82272; 82607; 82803; 82948; 83540; 83550; 83735; 84100; 85018; 85025; 85610; 85730; 87081; 92508; 92616; 93005; 94640; 94760; 96365; 96368; 96375; 97110; 97116; 97161; 97530; 99152; 99153; 99285; A4620; C1773; G0378; J0456; J1650; J2060; J2250; J2405; J2543; J3010; J3411; J3475; J7030; J7040; J7060; Q9967

== ENCOUNTER 2019-11-01 21:49 | Emergency (ER) | payer MEDICAID ==
[~2019-11-01] VITALS: Ht 180.3 cm; Wt 70.5 kg
[~2019-11-01 21:49] MED LIST changes: +DOCU-148 PO; -IBUP-1985 PO; +LACT1CAP26 PO; -LISI40TA4 PO; +MULT-1179 PO; +PSYL0.524 PO; -TRAM50TA2 PO; -[UNRECOGNIZED DRUG - CODE]; +folic acid tablet PO; +thiamine tablet PO
[2019-11-01 21:59] VITALS: BP 93/62
== END 2019-11-01 23:09 | disposition home or self-care (01) ==
LOC: ER 21:50
DX: S01.512A Laceration without foreign body of oral cavity, initial encounter (principal); F12.90 Cannabis use, unspecified, uncomplicated; Z87.11 Personal history of peptic ulcer disease; Z86.2 Personal history of diseases of the blood and blood-forming organs and certain disorders involving the immune mechanism; Z98.890 Other specified postprocedural states; Z72.89 Other problems related to lifestyle; Z59.0 Homelessness; Z56.0 Unemployment, unspecified; Z79.899 Other long term (current) drug therapy; W19.XXXA Unspecified fall, initial encounter; Y93.89 Activity, other specified; Y92.89 Other specified places as the place of occurrence of the external cause; Y99.8 Other external cause status
CPT/HCPCS: 99281; 99282